=== PATIENT | female | born 1955 ===

== ENCOUNTER 2020-07-18 07:56 | Outpatient (CLI) | payer OTHER ==
[~2020-07-18 07:56] MED LIST: CRESTOR10 MG PO; HYZAAR 50-12.51 EACH PO; JANUMET XR 50-1 EACH PO; METFORMIN HCL1000 M2 PO; SYNTHROID137 MCG PO; TENORMIN50 M1 PO
== END 2020-07-18 08:09 ==
LOC: MRI 07:56
PROVIDERS: ATTEND Obstetrics & Gynecology
DX: D25.1 Intramural leiomyoma of uterus (principal); R93.5 Abnormal findings on diagnostic imaging of other abdominal regions, including retroperitoneum; D27.0 Benign neoplasm of right ovary
CPT/HCPCS: 72197

== ENCOUNTER 2020-07-24 05:45 | Day surgery (SDC) | payer OTHER ==
[2020-07-24] MEDS ORDERED: MORGIDOX100 MG PO ×2 (10:10)
== END 2020-07-24 14:20 | disposition home or self-care (01) ==
LOC: CIR.AMB 05:45
PROVIDERS: ATTEND Obstetrics & Gynecology
DX: D26.1 Other benign neoplasm of corpus uteri (principal); D25.0 Submucous leiomyoma of uterus; Z20.822 Contact with and (suspected) exposure to COVID-19